=== PATIENT | male | born 2000 | race Asian ===

== ENCOUNTER 2022-07-02 17:26 | Emergency (ER) | payer OTHER, SELFPAY ==
[2022-07-02] VITALS (9 sets, daily range): BP systolic 89–133; BP diastolic 54–77; PULSE 68–92; RESP 14–19; TEMP 36.3; O2SAT 97–100
--- NOTE | 2022-07-02 18:27 | ED.GENADULT ---
HPI - General Adult General Chief complaint: GI Bleed Stated complaint: rectal bleeding Time Seen by Provider: 07/02/22 17:31 History of Present Illness HPI narrative: Patient is a 22-year-old male who presents to ER with rectal bleeding. Reports its been a recurrent issue since April 2022. He had been seen in ER and diagnosed with 2 rectal fissures. She been prescribed stool softeners and followed up in the same ER 6 weeks later where they told him his pressures had improved. He was still having intermittent drops of blood with blood at times and also would have occasional passage of blood in larger quantities. At that time to give him a GI phone number. He has been trying to contact her GI doctor but they will not call back. All of this occurred in [place]. She is now decided to drive out to state his sister's house and is planning to seek care here. He reports that 4 PM today she had a stream of bright red blood come out of his rectum filled the toilet. At the same time he did pass some solid stool. He gets little lightheaded when this occurs and gets a little tingling in his fingers. No family history or personal history of inflammatory bowel disease. He is not on any blood thinners. Reports he has had a CT of his abdomen that did not reveal anything. Patient had pain with defecation today. Related Data Allergies Allergy/AdvReac Type Severity Reaction Status Date / Time No Known Allergies Allergy Verified 07/02/22 17:36 Review of Systems Review of Systems: All systems reviewed & are unremarkable except as noted in HPI and below Constitutional: Constitutional: Denies chills, Denies fatigue and Denies fever(s) ENT: Denies sore throat Gastrointestinal: Gastrointestinal: Denies abdominal pain, Denies constipation, Denies diarrhea, Denies nausea and Denies vomiting Comments: rectal bleeding Musculoskeletal: Musculoskeletal: Reports back pain and Denies muscle cramps PMFSH Past Medical History Medical History (Updated 07/02/22 @ 21:03 by Armen Espinosa MD) Anxiety Surgical History Surgical History (Updated 07/02/22 @ 18:31 by Armen Espinosa MD) No history of previous surgery Social History Social History (Updated 07/02/22 @ 18:31 by Armen Espinosa MD) Smoking status: Never smoker Exam Narrative: GENERAL: Well-appearing, well-nourished, and in no acute distress. HEAD: Normocephalic, atraumatic. CHEST: Clear to auscultation. No respiratory distress. HEART: Regular rate and rhythm. Normal peripheral pulses. ABDOMEN: Soft, nontender, nondistended. Rectal: Fissure at 9 o'clock position when laying on the left side. No active bleeding. Digital exam negative for gross blood and negative for occult blood. EXTREMITIES: Normal range of motion. No edema. SKIN: Warm, dry, no rash. NEURO: Alert and oriented x3. PSYCH: Normal mood and affect. Course Course Emergency Course: Labs unremarkable. No anemia,. No gross blood or occult blood on exam. There is a fissure and likely represents very started bleeding. Patient needs to follow-up with GI and he verbalized understanding of this. We discussed lab results. Patient had some transient low blood pressures that normalized on their own and the patient was given additional liter of fluid as a precaution. Vital Signs Vital signs: Vital Signs Temperature 97.3 F L 07/02/22 17:32 Pulse Rate 92 07/02/22 17:32 Respiratory Rate 16 07/02/22 17:32 Blood Pressure 133/77 07/02/22 17:32 Pulse Oximetry 99 07/02/22 17:32 Temperature 97.3 F L 07/02/22 17:32 Pulse Rate 68 07/02/22 19:49 Respiratory Rate 14 07/02/22 19:49 Blood Pressure 113/64 07/02/22 19:49 Pulse Oximetry 100 07/02/22 19:49 Medical Decision Making Vital Signs Vital Signs: Vital Signs Temperature 97.3 F L 07/02/22 17:32 Pulse Rate 92 07/02/22 17:32 Respiratory Rate 16 07/02/22 17:32 Blood Pressure 133/77 07/02/22 17:32 Pulse Oxime
[2022-07-02 18:28] LABS: Basophils Percent Auto 0.3 % (0.2-1.2); Eosinophils Absolute Auto 0.1 K/mm3 (0-0.3); Eosinophils Percent Auto 1.2 % (0-4.4); Hematocrit 42.4 % (42.0-52.0); Immature Granulocyte Absolute 0.01 K/mm3 (0.00-0.031); Immature Granulocyte Percent A 0.1 % (0-0.5); Lymphocytes Absolute Auto 3.03 K/mm3 (0.9-3.2); Lymphocytes Percent Auto 43.9 % (18.3-44.2); Mean Corpuscular Hemoglobin 29.5 pg (26-34); Mean Corpuscular Volume 89.3 fl (80-100); Mean Platelet Volume 9.1 fl (7.4-10.4); Monocytes Absolute Auto 0.7 K/mm3 (0.1-0.6); Neutrophils Absolute Auto 3.1 K/mm3 (1.3-6.7); Neutrophils Percent Auto 44.5 % (45.5-73.1); Platelet Count Result 277 k/mm3 (150-375); Red Blood Count 4.75 M/mm3 (4.6-6.20); Red Cell Distribution Width 12.5 % (11.5-14.5); White Blood Count 6.9 K/mm3 (4.5-10.0)
[2022-07-02 18:35] LABS: INR 1.1; Prothrombin Time 13.6 Seconds (11.1-14.7)
[2022-07-02 18:36] LABS: Partial Thromboplastin Time 37.5 SECONDS (22.3-36.8)
[2022-07-02] MEDS: SODIUM CHLORIDE 0.9% IV 1,000 ML 999 ML IV CONT (19:31)
[2022-07-02 19:34] LABS: Alanine Aminotransferase 22 U/L (6-50); Albumin Level 4.5 g/dL (3.5-5.1); Alkaline Phosphatase 86 U/L (38-126); Anion Gap 6 mmol/L (8-16); Aspartate Amino Transferase 22 U/L (17-59); Bilirubin,Total 0.4 mg/dL (0.2-1.3); Blood Urea Nitrogen 11 mg/dL (9-20); Calcium 8.8 mg/dL (8.4-10.2); Carbon Dioxide 28 mmol/L (22-30); Chloride 104 mmol/L (98-107); Estimated CRCL calculation 159 ml/min; Estimated Glomerular Filt Rate > 60; Glucose 89 mg/dL (65-110); Lipase 86 U/L (23-300); Potassium 3.8 mmol/L (3.4-5.0); Sodium 138 mmol/L (137-145)
== END 2022-07-02 21:25 | disposition home or self-care (01) ==
PROVIDERS: Emergency Provider Emergency Medicine
DX: K60.2 Anal fissure, unspecified (principal)
CPT/HCPCS: 36415; 80053; 83690; 85025; 85610; 85730; 96360; 99283; J7030